=== PATIENT | male | born 1960 | race Caucasian/White ===

== ENCOUNTER 2024-02-05 07:13 | Day surgery (SDC) | payer OTHER ==
[~2024-02-05] VITALS: Ht 188 cm; Wt 104.3 kg
[2024-02-05] MEDS ORDERED: MEPERIDINE 100 MG INJ. 100 MG/ML VIAL ONE (07:59)
[2024-02-05] MEDS ORDERED: MIDAZOLAM HCL 5 MG/5 ML VIAL ONE (08:00)
[2024-02-05 13:40] VITALS: BP_SYST 126; PULSE 67; RESP 20; TEMP 98.1; O2SAT 95
== END 2024-02-05 11:15 | disposition home or self-care (01) ==
LOC: SDS 07:13 → SMU 07:13 → SDS 11:15
PROVIDERS: ATTEND Internal Medicine
DX: Z12.11 Encounter for screening for malignant neoplasm of colon (principal); K64.8 Other hemorrhoids
CPT/HCPCS: 99152; 99153; G0121; G0378; J2250; J2175; 45378